=== PATIENT | male | born 1990 ===

== ENCOUNTER 2016-07-20 09:21 | Emergency (ER) | payer BC ==
[2016-07-20 09:26] VITALS: TEMP 98.3; O2SAT 98
[2016-07-20] MEDS ORDERED: Naproxen 550 mg Tab PO STA (09:46)
--- NOTE | 2016-07-20 09:49 | C.PDOC ---
History Of Present Illness 26 y/o male presents to the ED with complains of sore throat and intermittent fever x1 week. He states pain radiates to bilateral ears and qdmits to pain with swallowing. Pt denies cough, rhinorrhea, SOB, chest pain. Time Seen by Provider: 07/20/16 09:29 Chief Complaint (Nursing): ENT Problem History Per: Patient History/Exam Limitations: None Onset/Duration Of Symptoms: Days, Intermittent Episodes Current Symptoms Are (Timing): Still Present Symptoms Have Been: Continuous Severity: Mild Past Medical History Reviewed: Historical Data, Nursing Documentation, Vital Signs Vital Signs: Last Vital Signs Temp 98.3 F 07/20/16 09:23 Pulse 89 07/20/16 10:02 Resp 18 07/20/16 10:02 BP 120/78 07/20/16 10:02 Pulse Ox 98 07/27/16 00:25 - Medical History PMH: Asthma Family History: States: No Known Family Hx - Social History Hx Alcohol Use: Yes Hx Substance Use: Yes - Immunization History Hx Tetanus Toxoid Vaccination: No Hx Influenza Vaccination: No Hx Pneumococcal Vaccination: No Review Of Systems Except As Marked, All Systems Reviewed And Found Negative. Constitutional: Positive for: Fever ENT: Positive for: Ear Pain (bilateral), Throat Pain. Negative for: Nose Discharge Cardiovascular: Negative for: Chest Pain, Palpitations Respiratory: Negative for: Cough, Shortness of Breath Gastrointestinal: Negative for: Nausea, Vomiting Skin: Negative for: Rash Physical Exam - Physical Exam Appears: Non-toxic, No Acute Distress, Other (speaking in full sentences) Skin: Warm, Dry, No Rash Head: Normacephalic Nose: No Discharge Oral Mucosa: Moist Throat: No Drooling, Other (tonsils swollen, erythematous with exudates bilaterally; uvula midline and normal in appearance) Neck: Supple Cardiovascular: Rhythm Regular, No Murmur Respiratory: Normal Breath Sounds, No Rales, No Rhonchi, No Wheezing Extremity: Bilateral: Atraumatic Neurological/Psych: Oriented x3 ED Course And Treatment O2 Sat by Pulse Oximetry: 98 (on room air) Pulse Ox Interpretation: Normal Progress Note: Patient given PO amoxicillin and Naprosyn in ED, as well as Rxs for same + chloraseptic spray. He was instructed to follow up with PMD/clinic in 1-2 days, and understands he should return to ED if symptoms worsen. Disposition Counseled Patient/Family Regarding: Studies Performed, Diagnosis, Need For Followup, Rx Given - Disposition Referrals: [facility] [Outside] Disposition: HOME/ ROUTINE Disposition Time: 10:00 Condition: STABLE Additional Instructions: FOLLOW UP WITH YOUR DOCTOR/CLINIC IN 1-2 DAYS USE MEDICATIONS DIRECTED RETURN TO ED IF SYMPTOMS WORSEN Prescriptions: Amoxicillin 500 mg PO BID #14 tab Phenol/Glycerin [Chloraseptic [place]] 1 spray MM Q6 PRN #1 spray PRN Reason: THROAT PAIN Naproxen [Naprosyn Tab] 375 mg PO BID PRN #15 tab PRN Reason: pain Instructions: Pharyngitis (ED) Print Language: ESTONIAN - POA Present On Arrival: None - Clinical Impression Clinical Impression: Tonsillitis - Scribe Statement The provider has reviewed the documentation as recorded by the Mireille Stinson Provider Attestation: All medical record entries made by the Mireille were at my direction and personally dictated by me. I have reviewed the chart and agree that the record accurately reflects my personal performance of the history, physical exam, medical decision making, and the department course for this patient. I have also personally directed, reviewed, and agree with the discharge instructions and disposition.
[2016-07-20] MEDS ORDERED: Naproxen 550 mg Tab PO ONE (09:54)
[2016-07-20 10:03] VITALS: BP 120/78; PULSE 89; RESP 18
== END 2016-07-20 10:07 | disposition home or self-care (01) ==
LOC: C.ER 09:21
DX: J03.90 Acute tonsillitis, unspecified (principal); Z72.0 Tobacco use